=== PATIENT | male | born 1960 | race Hispanic/Latino ===

== ENCOUNTER → 2017-12-07 | Outpatient (CLI) | payer OTHER ==
--- NOTE | 2017-12-07 10:17 | Diagnostic Imaging Report ---
PROCEDURE:TESTICULAR DOPPLER ULTRASOUND COMPARISON:None. INDICATIONS:Testis Pain TECHNIQUE: Coats-scale and color doppler images of the testicles and scrotal contents were obtained. Duplex imaging with spectral waveform analysis was performed of the testicular arteries and veins. FINDINGS: See below. CONCLUSION: Please see the dictation of the testicular ultrasound for full clinical details. Dictated by: Lamberto Perez M.D. on 12/07/2017 at 10:18 Electronically approved by: Lamberto Perez M.D. on 12/07/2017 at 10:18
--- NOTE | 2017-12-07 10:42 | Diagnostic Imaging Report ---
PROCEDURE:TESTICULAR ULTRASOUND COMPARISON:None. INDICATIONS:Testis Pain TECHNIQUE: Coats-scale and color doppler images of the testicles and scrotal contents were obtained. Duplex imaging with spectral waveform analysis was performed of the testicular arteries and veins. FINDINGS: RIGHT SCROTUM: Testicle: 5.3 x 2.2 x 3.8 cm. No focal mass. Epididymal head: 1.3 x 0.6 x 0.9 cm. Hydrocele: Small right hydrocele. Varicocele: Small. LEFT SCROTUM: Testicle: 4.3 x 2.3 x 3.3 cm. Single left testicular punctate calcification. No focal mass. Epididymal head: 1.2 x 0.6 x 1.2 cm. Hydrocele: None. Varicocele: None. Normal blood flow is noted to the testicles bilaterally. Low likelihood of torsion. CONCLUSION: No acute sonographic abnormality. Small right hydrocele. Small right varicocele. Dictated by: Lamberto Perez M.D. on 12/07/2017 at 10:44 Electronically approved by: Lamberto Perez M.D. on 12/07/2017 at 10:44
== END ==
LOC: US 08:40
PROVIDERS: ATTEND Urology
DX: N50.819 Testicular pain, unspecified (principal); G89.29 Other chronic pain
CPT/HCPCS: 76870; 93976

== ENCOUNTER 2020-01-21 10:18 | Emergency (ER) | payer SELFPAY ==
[~2020-01-21] VITALS: Ht 162.6 cm; Wt 67.1 kg
[2020-01-21] MEDS ORDERED: SODIUM CHLORIDE 0.9% 1000ML 1,000 ML IV STA (10:47)
[2020-01-21 11:41] LABS: INR 0.93
[2020-01-21 11:42] LABS: PARTIAL THROMBOPLASTIN TIME 26.9 seconds (23.8-35.5)
--- NOTE | 2020-01-21 11:45 | NUR ---
patients daughter Judith [phone]
[2020-01-21 11:51] LABS: ALANINE AMINOTRANSFERASE 30 IU/L (0-55); ALBUMIN 4.2 g/dL (3.5-5.0); ALBUMIN/GLOBULIN RATIO 1.2 (0.8-2.0); ALKALINE PHOSPHATASE 82 IU/L (40-150); ANION GAP 15.7 mmol/L (8-16); BLOOD UREA NITROGEN 12 mg/dL (7-26); BUN/CREATININE RATIO 15 (6-25); CALCIUM 8.9 mg/dL (8.4-10.2); CARBON DIOXIDE 21 mmol/L (22-29); CHLORIDE 106 mmol/L (98-107); CREATINE KINASE 80 IU/L (30-200); EST GLOMERULAR FILTRATION RATE > 60 ML/MIN (60-); GLUCOSE 109 mg/dL (74-118); POTASSIUM 3.7 mmol/L (3.5-5.1); SODIUM 139 mmol/L (136-145)
[2020-01-21 12:03] LABS: BASOPHILS % 0.2 % (0.0-1.0); EOSINOPHILS % 0.2 % (0.0-6.0); HEMATOCRIT 41.7 % (38.2-49.6); HEMOGLOBIN 14.4 g/dL (14.0-18.0); LYMPHOCYTES # (AUTO) 0.7 (1.0-3.2); LYMPHOCYTES % 11.4 % (18.0-39.1); MEAN CORPUSCULAR HEMOGLOBIN 29.7 pg (28-32); MEAN CORPUSCULAR HGB CONC 34.5 g/dL (31-35); MONOCYTES # (AUTO) 0.5 (0.2-0.8); MONOCYTES % 9.3 % (4.4-11.3); NEUTROPHILS # (AUTO) 4.6 (2.1-6.9); NEUTROPHILS % 78.6 % (38.7-80.0); PLATELET COUNT 160 x10e3/uL (140-360); RED BLOOD COUNT 4.85 x10e6/uL (4.3-5.7); RED CELL DISTRIBUTION WIDTH 12.2 % (11.7-14.4)
--- NOTE | 2020-01-21 12:36 | Emergency Department Note ---
History of Present Illnes History of Present Illness Chief Complaint: COVID PUI History of Present Illness This is a 59 year old male STATES HE THINKS HE HAS COVID, STATES THAT HE HAS A DRY THROAT, ALSO REPORTS THAT HE HAS INTERMITTENT COUGH, BUT NO COUGHING ON DEEP INSPIRATION. DENIES FEVER, CHILLS, SORE THROAT, DIARRHEA, NAUSEA OR VOMITING. HIS MOTHER 3 WEEKS AGO AT [place] WITH COVID19, HE WAS TESTED AFTER THAT AND WAS NEGATIVE Historian: Patient Arrival Mode: Car Billposting Supervisor Required: Yes Onset (how long ago): day(s) (STARTED LAST NIGHT) Location: COUGH Quality: COUGH Radiation: Reports non-radiation Severity: mild Onset quality: gradual Timing of current episode: intermittent Progression: waxing and waning Chronicity: new Context: Denies recent illness Relieving factors: none Exacerbating factors: none Associated symptoms: Reports cough, Reports shortness of breath Treatments prior to arrival: none Past Medical/Family History Physician Review I have reviewed the patient's past medical and family history. Any updates have been documented here. 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) Respiratory: Reports cough, Reports dyspnea Gastrointestinal: Reports no symptoms Genitourinary: Reports no symptoms Musculoskeletal: Reports no symptoms Integumentary: Reports no symptoms Neurological: Reports no symptoms Psychological: Reports no symptoms Endocrine: Reports no symptoms Hematological/Lymphatic: Reports no symptoms Physical Exam Related Data Allergies: Coded Allergies: No Known Allergies (Unverified , 01/21/20) Triage Vital Signs Vital Signs Date Time Temp Pulse Resp B/P (MAP) Pulse Ox O2 Delivery O2 Flow Rate FiO2 01/21/20 10:39 97.8 81 16 164/89 97 Vital signs reviewed: Yes Physical Exam CONSTITUTIONAL Constitutional: Present well-developed, Present well-nourished HENT HENT: Present normocephalic, Present atraumatic, Present oropharynx clear/moist, Present nose normal HENT L/R: Present left ext ear normal, Present right ext ear normal EYES Eyes: Reports PERRL, Reports conjunctivae normal NECK Neck: Present ROM normal PULMONARY Pulmonary: Present effort normal, Present breath sounds normal CARDIOVASCULAR Cardiovascular: Present regular rhythm, Present heart sounds normal, Present capillary refill normal, Present normal rate GASTROINTESTINAL Abdominal: Present soft, Present nontender, Present bowel sounds normal GENITOURINARY Genitourinary: Present exam deferred SKIN Skin: Present warm, Present dry MUSCULOSKELETAL Musculoskeletal: Present ROM normal NEUROLOGICAL Neurological: Present alert, Present oriented x 3, Present no gross motor or sensory deficits PSYCHOLOGICAL Psychological: Present mood/affect normal, Present judgement normal Results Laboratory Result Diagram: 01/21/20 1057 01/21/20 1057 Laboratory Laboratory Tests Test 01/21/20 12:11 01/21/20 10:57 White Blood Count 5.81 x10e3/uL (4.8-10.8) Red Blood Count 4.85 x10e6/uL (4.3-5.7) Hemoglobin 14.4 g/dL (14.0-18.0) Hematocrit 41.7 % (38.2-49.6) Mean Corpuscular Volume 86.0 fL (81-99) Mean Corpuscular Hemoglobin 29.7 pg (28-32) Mean Corpuscular Hemoglobin Concent 34.5 g/dL (31-35) Red Cell Distribution Width 12.2 % (11.7-14.4) Platelet Count 160 x10e3/uL (140-360) Neutrophils (%) (Auto) 78.6 % (38.7-80.0) Lymphocytes (%) (Auto) 11.4 % (18.0-39.1) Monocytes (%) (Auto) 9.3 % (4.4-11.3) Eosinophils (%) (Auto) 0.2 % (0.0-6.0) Basophils (%) (Auto) 0.2 % (0.0-1.0) Neutrophils # (Auto) 4.6 (2.1-6.9) Lymphocytes # (Auto) 0.7 (1.0-3.2) Monocytes # (Auto) 0.5 (0.2-0.8) Eosinophils # (Auto) 0.0 (0.0-0.4) Basophils # (Auto) 0.0 (0.0-0.1) Absolute Immature Granulocyte (auto 0.02 x10e3/uL (0-0.1) Prothrombin Time 13.0 seconds (11.9-14.5) Prothromb Time International Ratio 0.93 Activated Partial Thromboplast Time 26.9 seconds (23.8-35.5) D-Dimer Quantitative (PE/DVT) 0.25 ug/mLFEU (0.00-0.45) Sodium Level 139 mmol/L (136-145) Potassium Level 3.7 mmol/L (3.5-5.1) Chloride Level 106 mmol/L (98-107) Carbon Dioxide Level 21 mmol/L (22-29) Anion Gap 15.7 mmol/L (8-16) Blood Urea Nitrogen 12 mg/dL (7-26) Creatinine 0.80 mg/dL (0.72-1.25) Estimat Glomerular Filtration Rate > 60 ML/MIN (60-) BUN/Creatinine Ratio 15 (6-25) Glucose Level 109 mg/dL (74-118) Calcium Level 8.9 mg/dL (8.4-10.2) Total Bilirubin 0.9 mg/dL (0.2-1.2) Aspartate Amino Transf (AST/SGOT) 23 IU/L (5-34) Alanine Aminotransferase (ALT/SGPT) 30 IU/L (0-55) Alkaline Phosphatase 82 IU/L (40-150) Creatine Kinase 80 IU/L (30-200) Creatine Kinase MB 1.10 ng/mL (0-5.0) Troponin I 0.001 ng/mL (0-0.300) B-Type Natriuretic Peptide < 10.0 pg/mL (0-100) Total Protein 7.7 g/dL (6.5-8.1) Albumin 4.2 g/dL (3.5-5.0) Globulin 3.5 g/dL (2.3-3.5) Albumin/Globulin Ratio 1.2 (0.8-2.0) Lab results reviewed: Yes Imaging Imaging results reviewed: Yes Diagnostics Tests Diagnostic test(s) reviewed: Yes Procedures 12 Lead ECG Interpretation ECG Interpretation : ECG: ECG 1 Date: Jan 21, 2020 Time: 10:48 Rhythm: sinus rhythm Rate: normal (72) QRS axis: normal ST segments normal: Yes T waves normal: Yes Clinical Impression: normal ECG Assessment & Plan Medical Decision Making MDM PT WITH MILD NON-PRODUCTIVE COUGH, MILD SOB, NORMAL O2 SATS, MAINLY HERE DUE TO CONCERN FOR COVID19 - CHECK CBC, CHEM'S, ECG, CARDIAC ENZYMES, D-DIMER, CXR, COVID SWAB - R/O STEMI/NSTEMI, PNEUMONIA/BRONCHITIS, PULM EMBOLUS, COVID19 - NOTE THAT OUR COVID TEST TAKES 6-8 HRS AND IF EVERYTHING ESLE IS NEGATIVE AND O2 SAT REMAINS NORMAL, WILL DC HOME WITH INSTRUCTIONS TO SELF-QUARANTINE AND F/U PCP Reassessment Reassessment DC HOME WITH ZPACK Assessment & Plan Final Impression: (1) Bronchitis Depart Disposition: HOME, SELF-CARE Last Vital Signs Date Time Temp Pulse Resp B/P (MAP) Pulse Ox O2 Delivery O2 Flow Rate FiO2 01/21/20 10:39 97.8 81 16 164/89 97 Medications in the ED Sodium Chloride 1,000 ml @ 0 mls/hr Q0M STAT IV Last administered on 01/21/20at 11:53; Admin Dose 999 MLS/HR; Start 01/21/20 at 10:47; Stop 01/21/20 at 10:49; Status DC KIMBERLI BAKER MD Jan 21, 2020 12:36
--- NOTE | 2020-01-21 12:47 | Diagnostic Imaging Report ---
TECHNIQUE: Frontal view of the chest. INDICATION: ^Y ^COUGH, CP ^[id number] ^1200 COMPARISON: None. IMPRESSION: Lines and hardware: None. Heart and mediastinum: Unremarkable. Lungs and pleura: No focal airspace consolidation. No pleural effusion. No pneumothorax. Soft tissues and bones: No acute abnormality. Signed by: Daniel Lopez MD on 01/21/2020 12:44 PM
--- NOTE | 2020-01-21 14:43 | NUR ---
PAUL CHARGE NURSE AT BEDSIDE ASSISTING WITH TRANSLATION. PATIENT IS AWARE HIS WAS ADMITTED AND HE IS TO GO HOME AND QUARANTINE ALONE FOR 2 WEEKS AND HE WILL BE CALLED WITH RESULTS. PATIENT VERBALIZED UNDERSTANDING
== END 2020-01-21 15:13 | disposition home or self-care (01) ==
LOC: ER 10:18
DX: R05 Cough (principal); J40 Bronchitis, not specified as acute or chronic; U07.1 COVID-19; E78.5 Hyperlipidemia, unspecified
CPT/HCPCS: 36415; 71045; 80053; 82550; 82553; 83880; 84484; 85025; 85379; 85610; 85730; 87635; 93005; 99284; J7030